=== PATIENT | male | born 1995 | race Caucasian/White ===

== ENCOUNTER 2017-09-05 00:50 | Emergency (ER) | payer OTHER ==
[~2017-09-05] VITALS: Ht 182.9 cm; Wt 62.9 kg
[2017-09-05] MEDS ORDERED: ULTRAM50 MG PO (05:37)
[2017-09-05] MEDS ORDERED: KEFLEX500 MG PO (05:53)
[2017-09-05 05:56] VITALS: BP 146/69
== END 2017-09-05 05:57 | disposition home or self-care (01) ==
LOC: EME 00:50
DX: S80.02XA Contusion of left knee, initial encounter (principal); S63.502A Unspecified sprain of left wrist, initial encounter; M25.561 Pain in right knee; V18.0XXA Pedal cycle driver injured in noncollision transport accident in nontraffic accident, initial encounter; Y93.55 Activity, bike riding
CPT/HCPCS: 73110; 73564; 73700; 99281; 99284